=== PATIENT | male | born 1975 | race Caucasian/White ===

== ENCOUNTER 2018-02-17 08:04 | Emergency (ER) | END 2018-02-17 11:01 | disposition home or self-care (01) ==

== ENCOUNTER 2018-10-16 11:25 | Emergency (ER) | payer SELFPAY ==
[~2018-10-16] VITALS: Ht 175.3 cm; Wt 94.9 kg
[~2018-10-16 11:25] MED LIST: ATOR-2 PO; LISI-471 PO; MONT10TA24 PO
[2018-10-16 11:29] VITALS: BP 134/68; PULSE 66; RESP 18; Ht 175.3 cm; Wt 94.9 kg
== END 2018-10-16 13:36 | disposition left against medical advice (07) ==
LOC: E/R 11:25
DX: Z53.21 Procedure and treatment not carried out due to patient leaving prior to being seen by health care provider (principal)